=== PATIENT | male | born 1995 | race Caucasian/White ===

== ENCOUNTER 2017-07-02 23:07 | Emergency (ER) | payer MEDICAID ==
[~2017-07-02] VITALS: Ht 160 cm; Wt 50.0 kg
[2017-07-03 01:40] VITALS: BP 109/66
== END 2017-07-03 01:43 | disposition home or self-care (01) ==
LOC: ER 23:07
DX: J02.8 Acute pharyngitis due to other specified organisms (principal); B97.89 Other viral agents as the cause of diseases classified elsewhere; F17.200 Nicotine dependence, unspecified, uncomplicated; F12.10 Cannabis abuse, uncomplicated
CPT/HCPCS: 87070; 87430; 99283